=== PATIENT | male | born 1975 | race Caucasian/White ===

== ENCOUNTER 2018-07-01 08:46 | Emergency (ER) | payer OTHER ==
[2018-07-01 09:21] VITALS: BP 114/74; PULSE 61; TEMP 98.2; BMI 33.5
[2018-07-01] MEDS ORDERED: DIPHTH,PERTUSS(ACELL),TET 0.5 ML DISP.SYRIN IM ONE (09:23)
--- NOTE | 2018-07-01 10:06 | PDOC ---
History of Present Illness - General Chief Complaint: Blood/Body Fluid Exposure SJR Stated Complaint: INJURY Time Seen by Provider: 07/01/18 09:16 History Source: Patient Exam Limitations: No Limitations - History of Present Illness Initial Comments: 07/01/18 10:01 43 y/o male presents with left leg laceration he sustained today while at work. 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 Patient states on up-to-date on tetanus and denies medical history such as diabetes or immunosuppressive disorders Timing/Duration: 1-3 hours Severity: mild Associated Symptoms: reports: denies symptoms Past History - Travel Traveled outside of the country in the last 30 days: No - Past Medical History Allergies/Adverse Reactions: Allergies Allergy/AdvReac Type Severity Reaction Status Date / Time hydromorphone [From Dilaudid] Allergy Verified 07/01/18 09:09 Home Medications: Ambulatory Orders NK [No Known Home Medication] 07/01/18 COPD: No - Suicide/Smoking/Psychosocial Hx Smoking History: Never smoked Hx Alcohol Use: No Drug/Substance Use Hx: No Patient Lives Alone: No Lives with/in: spouse/SO Review of Systems - Review of Systems Able to Perform ROS?: No Constitutional: No: Symptoms Reported Musculoskeletal: No: Symptoms Reported Integumentary: Yes: See HPI Neurological: No: Symptoms reported Hematologic/Lymphatic: No: Symptoms Reported *Physical Exam - Vital Signs Last Vital Signs Temp Pulse Resp BP Pulse Ox 98.2 F 61 18 114/74 99 07/01/18 09:09 07/01/18 09:09 07/01/18 09:09 07/01/18 09:09 07/01/18 09:09 - Physical Exam General Appearance: Yes: Nourished, Appropriately Dressed. No: Apparent Distress Integumentary: positive: Normal Color, Warm, Moist, Other (3.5- 4 cm laceration to the lateral aspect of left lower leg distal of patella) Procedures - Laceration/Wound Repair Left Leg Wound Length: 2.6 to 5.0 cm Wound Explored: clean, no foreign body present Wound's Depth, Shape: superficial, linear Irrigated w/ Saline: Yes Betadine Prep: Yes Anesthesia: 1% Lidocaine Amount of Anesthetic (ccs): 3 Wound Repaired With: Sutures Suture Size/Type: 4:0 Number of Sutures: 12 Sterile Dressing Applied: Yes ED Treatment Course - RADIOLOGY Radiology Studies Ordered: Category Date Time Status KNEE 3 POS-LEFT [RAD] Stat Radiology 07/01/18 09:23 Completed - Medications Given in the ED: ED Medications Discontinued Medications Generic Name Dose Route Start Last Admin Trade Name Laureen PRN Reason Stop Dose Admin Diphtheria/Tetanus/Acell Pertussis 0.5 ml 07/01/18 09:23 07/01/18 09:33 Boostrix - IM 07/01/18 09:24 0.5 ml .ONCE ONE Administration Medical Decision Making - Medical Decision Making 07/01/18 10:04 Chief complaint: Left leg laceration. Unknown last tetanus Exam: Linear laceration to the lateral aspect of left lower leg. Plan: T dap, x-ray to rule out foreign body laceration repair done without difficulty. Patient to return in 2 weeks for suture removal *DC/Admit/Observation/Transfer Diagnosis at time of Disposition: Laceration of leg Qualifiers: Encounter type: initial encounter Laterality: left Qualified Code(s): S81.812A - Laceration without foreign body, left lower leg, initial encounter - Discharge Dispostion Disposition: HOME Condition at time of disposition: Improved - Referrals - Patient Instructions Printed Discharge Instructions: DI for Laceration Repair -- Simple Additional Instructions: Please keep area clean and apply bacitracin in the morning and may allow it to air dry at night. Please observe for redness swelling or drainage from the area and if noted please call the ER immediately if this is a sign of infection that requires an antibiotic. Otherwise return here in 2 weeks for suture removal. - Post Discharge Activity Forms/Work/School Notes: Back to Work
== END 2018-07-01 10:09 | disposition home or self-care (01) ==
LOC: JERFT 08:46 → JER 08:46 → JERFT 10:09
PROC: 0HQLXZZ Repair Left Lower Leg Skin, External Approach (ICD-10-PCS; principal; 2018-07-01)
PROC: 3E0234Z Introduction of Serum, Toxoid and Vaccine into Muscle, Percutaneous Approach (ICD-10-PCS; 2018-07-01)
DX: S81.812A Laceration without foreign body, left lower leg, initial encounter (principal); W26.8XXA Contact with other sharp object(s), not elsewhere classified, initial encounter; Y93.H9 Activity, other involving exterior property and land maintenance, building and construction; Y92.414 Local residential or business street as the place of occurrence of the external cause; Y99.0 Civilian activity done for income or pay
CPT/HCPCS: 73562-TC-LT-FY; 90715; 99282-25